=== PATIENT | male | born 1945 | race Hispanic/Latino ===

== ENCOUNTER 2023-04-08 09:04 | Inpatient (IN) | payer MEDICAID, SELFPAY ==
[2023-04-08 09:54] LABS: Hematocrit 33.1 % (42.0-52.0); Mean Corpuscular HGB CONC 33.2 g/dL (32.0-36.0); Mean Corpuscular Hemoglobin 28.7 pg (27.0-31.0); Mean Corpuscular Volume 86.4 fl (78.0-98.0); Mean Platelet Volume 11.7 fL (7.4-10.4); Platelet Count 121 10x3/uL (130-400); RBC Distribution Width 15.5 % (11.5-14.5); Red Blood Cell (RBC) Count 3.83 mill/uL (4.70-6.10); White Blood Cell (WBC) Count 4.3 10x3/uL (4.8-10.8)
[2023-04-08 10:17] LABS: ALT (SGPT) 199 U/L (8-55); AST (SGOT) 596 U/L (5-34); Albumin 2.1 g/dL (3.4-4.8); Alkaline Phosphatase 245 U/L (40-110); Anion Gap 15 mmol/L (10-20); BUN (Urea Nitrogen) 35 mg/dL (8.4-25.7); Calc. Creatinine Clearance 0 mL/min (70-130); Calcium 7.1 mg/dL (7.8-10.44); Carbon Dioxide 22 mmol/L (23-31); Chloride 97 mmol/L (98-107); Estimated GFR 49; Globulin 5.1 g/dL (2.4-3.5); Glucose 82 mg/dL (83-110); Potassium 4.2 mmol/L (3.5-5.1); Protein, Total 7.2 g/dL (5.8-8.1); Sodium 130 mmol/L (136-145)
[2023-04-08 10:19] LABS: Troponin I 0.027 ng/mL (< 0.028)
[2023-04-08 10:20] LABS: Delete Auto Diff?? YES; Manual Diff?? YES
[2023-04-08 10:49] LABS: Anisocytosis MODERATE=16-30 cells HPF (0-5); Band 30 % (5-11); Burr Cells SLIGHT = 2-5 cells HPF (0-1); CellaVision Operator ID LAB.NR; Lymphocytes 3 % (21-51); Macrocytosis SLIGHT = 6-15 cells HPF (0-5); Monocytes 3 % (0-10); Neutrophil 64 % (42-75); Nucleated RBC (Manual Ct) 1 % (0); Platelet Adequacy Comment Platelets Decreased; Poikilocytosis SLIGHT = 6-15 cells HPF (0-5); Polychromasia SLIGHT = 2-3 cells HPF (0-2); Smudge Cells 27.5 %; Total Cell Count 102
[2023-04-08] MEDS ORDERED: Iopamidol-370 76% 500 ML MDV (1 ML CHARGE) ONE (11:31)
[2023-04-08] MEDS ORDERED: cefTRIAXone (ROCEPHIN) 2 GM VIAL ONE (12:08)
[2023-04-08] MEDS ORDERED: Sodium Chloride 0.9% 100 ML ONE (12:09)
[2023-04-08 12:35] LABS: Bacteria/HPF None Seen HPF (None Seen); Bilirubin Negative (Negative); Blood, Urine 2+ (Negative); CAUTI Indications for Culture Pelvic or flank pain; Clarity Turbid (Clear); Glucose, Urine (Dipstick) Normal (Negative); Ketone, Urine Negative (Negative); Leukocyte Negative Leu/uL (Negative); Nitrite Negative (Negative); Protein, Urine (Dipstick) 30 mg/dL (Neg-Trace); Specific Gravity, Urine 1.016 (1.002-1.036); Squamous Epithelial 0-3 HPF (0-3); Urobilinogen Normal mg/dL (Less than 2); WBC/HPF 0-3 HPF (0-3); pH, Urine 5.5 (5.0-9.0)
[2023-04-08 12:36] LABS: Urine Culture Reflex No No
[2023-04-08] MEDS ORDERED: Ondansetron PF 4 MG/2 ML Vial IVP PRN (13:30)
[2023-04-08] MEDS ORDERED: Ondansetron ODT 4 MG TAB PO PRN (13:30)
[2023-04-08] MEDS ORDERED: Acetaminophen 325 MG TAB PO PRN (13:30)
[2023-04-08 14:02] LABS: Bilirubin, Direct 5.8 mg/dL (0.1-0.3); Bilirubin, Total 7.7 mg/dL (0.2-1.2)
[2023-04-08] MEDS ORDERED: Sodium Chloride 0.9% 1,000 ML IV SCH (14:15)
[2023-04-08 14:37] LABS: HBCM Index 0.25 S/CO (0-0.79); HBSAg Index 0.24 S/CO (0-0.99); Hep A IgM AB Non-Reactive S/CO (NonReactive); Hep A IgM S/CO 0.33 S/CO (0-0.79); Hep B Surf Ag Non-Reactive S/CO (NonReactive); Hep C IgG Ab Non-Reactive S/CO (NonReactive); Hep C Index 0.67 S/CO (0-0.79); Hepatitis B Core IgM Abs Non-Reactive S/CO (NonReactive)
[2023-04-08 15:08] VITALS: BMI 19.0
[2023-04-08 17:25] LABS: Amphetamine Not Detected (NotDetected); Barbiturates Screen Not Detected (NotDetected); Benzodiazepine Screen Not Detected (NotDetected); Cocaine Metabolite Screen Not Detected (NotDetected); Methadone Not Detected (NotDetected); Methamphetamine Not Detected (NotDetected); Opiate Screen Not Detected (NotDetected); Oxycodone Screen Not Detected (NotDetected); Phencyclidine (PCP) Not Detected (NotDetected); THC/Cannabinoid Screen Not Detected (NotDetected); Tricyclic Screen Not Detected (NotDetected)
[2023-04-08 18:23] LABS: Acetaminophen Less than 10 mcg/mL (10.0-30.0); Alcohol Less than 10.0 mg/dL (Less than 10)
[2023-04-09] MEDS: Acetaminophen 325 MG TAB PO PRN (00:09)
[2023-04-09] MEDS ORDERED: Acetaminophen 325 MG TAB PO SCH (00:15)
[2023-04-09 07:09] LABS: Hematocrit 31.6 % (42.0-52.0); Hemoglobin 10.2 g/dL (14.0-18.0); Mean Corpuscular HGB CONC 32.3 g/dL (32.0-36.0); Mean Corpuscular Hemoglobin 29.1 pg (27.0-31.0); Mean Platelet Volume 11.7 fL (7.4-10.4); Platelet Count 93 10x3/uL (130-400); RBC Distribution Width 16.1 % (11.5-14.5); White Blood Cell (WBC) Count 3.5 10x3/uL (4.8-10.8)
[2023-04-09 07:16] LABS: Delete Auto Diff?? YES; Manual Diff?? YES; Mean Corpuscular Volume 90.3 fl (78.0-98.0)
[2023-04-09 07:36] LABS: ALT (SGPT) 188 U/L (8-55); AST (SGOT) 560 U/L (5-34); Albumin 1.3 g/dL (3.4-4.8); Alkaline Phosphatase 177 U/L (40-110); Anion Gap 11 mmol/L (10-20); BUN (Urea Nitrogen) 28 mg/dL (8.4-25.7); Bilirubin, Total 7.7 mg/dL (0.2-1.2); Calc. Creatinine Clearance 38 mL/min (70-130); Carbon Dioxide 22 mmol/L (23-31); Chloride 99 mmol/L (98-107); Estimated GFR 68; Globulin 4.8 g/dL (2.4-3.5); Glucose 57 mg/dL (83-110); Potassium 4.3 mmol/L (3.5-5.1); Protein, Total 6.1 g/dL (5.8-8.1); Sodium 128 mmol/L (136-145)
[2023-04-09 07:53] LABS: Calcium 6.9 mg/dL (7.8-10.44)
[2023-04-09 08:38] LABS: Band 41 % (5-11); Burr Cells MODERATE= 6-15 cells HPF (0-1); CellaVision Operator ID LAB.GE; Large Platelets 5.9 % (0-5); Lymphocytes 3 % (21-51); Neutrophil 54 % (42-75); Platelet Adequacy Comment Platelets Decreased; Polychromasia SLIGHT = 2-3 cells HPF (0-2); Schistocytes SLIGHT = 2-5 cells HPF (0-1); Total Cell Count 102
[2023-04-09] MEDS ORDERED: Glucagon 1 MG/ML KIT IM PRN (09:35)
[2023-04-09] MEDS ORDERED: Dextrose 5% in Water 1,000 ML IV PRN (09:35)
[2023-04-09] MEDS ORDERED: Dextrose 50% Abboject 50 ML SYRINGE SLOW IVP PRN (09:35)
[2023-04-09] MEDS ORDERED: Dextrose 50% Abboject 50 ML SYRINGE SLOW IVP SCH (09:45)
[2023-04-09] MEDS ORDERED: Lactated Ringer's 1,000 ML IV SCH (13:45)
[2023-04-09] MEDS: cefTRIAXone\\ROCEPHIN 2 GM in Sodium Chloride 0.9% 100 ML IVPB SCH (14:44)
[2023-04-09] MEDS: Thiamine HCl 200 MG/2 ML VIAL SLOW IVP SCH (14:44)
[2023-04-09] MEDS: Lactated Ringer's 1,000 ML IV SCH (14:44)
[2023-04-10] MEDS: Lactated Ringer's 1,000 ML IV SCH (04:24)
[2023-04-10] MEDS: Acetaminophen 325 MG TAB PO PRN (04:29)
[2023-04-10 06:51] LABS: Hematocrit 28.3 % (42.0-52.0); Hemoglobin 9.2 g/dL (14.0-18.0); Mean Corpuscular HGB CONC 32.5 g/dL (32.0-36.0); Mean Platelet Volume 11.5 fL (7.4-10.4); Platelet Count 112 10x3/uL (130-400); RBC Distribution Width 15.8 % (11.5-14.5); Red Blood Cell (RBC) Count 3.28 mill/uL (4.70-6.10); White Blood Cell (WBC) Count 3.5 10x3/uL (4.8-10.8)
[2023-04-10 06:53] LABS: Mean Corpuscular Volume 86.3 fl (78.0-98.0)
[2023-04-10 07:00] LABS: Hematocrit 28.3 % (42.0-52.0); Hemoglobin 9.4 g/dL (14.0-18.0); Mean Corpuscular HGB CONC 33.2 g/dL (32.0-36.0); Mean Corpuscular Hemoglobin 28.8 pg (27.0-31.0); Mean Platelet Volume 11.8 fL (7.4-10.4); Platelet Count 112 10x3/uL (130-400); RBC Distribution Width 15.6 % (11.5-14.5); Red Blood Cell (RBC) Count 3.26 mill/uL (4.70-6.10); White Blood Cell (WBC) Count 3.5 10x3/uL (4.8-10.8)
[2023-04-10 07:03] LABS: Hemoglobin A1c 5.9 % (4.0-6.0)
[2023-04-10 07:12] LABS: Delete Auto Diff?? YES; Manual Diff?? YES; Mean Corpuscular Volume 86.8 fl (78.0-98.0)
[2023-04-10 07:18] LABS: ALT (SGPT) 202 U/L (8-55); AST (SGOT) 561 U/L (5-34); Albumin 1.3 g/dL (3.4-4.8); Alkaline Phosphatase 147 U/L (40-110); Anion Gap 10 mmol/L (10-20); BUN (Urea Nitrogen) 27 mg/dL (8.4-25.7); Bilirubin, Total 7.2 mg/dL (0.2-1.2); Calc. Creatinine Clearance 36 mL/min (70-130); Carbon Dioxide 23 mmol/L (23-31); Chloride 102 mmol/L (98-107); Estimated GFR 64; Globulin 4.6 g/dL (2.4-3.5); Glucose 119 mg/dL (83-110); Iron 31 ug/dL (65-175); Iron Binding Capacity, Total 78 mcg/dL (261-462); Lipase 49 U/L (8-78); Protein, Total 5.9 g/dL (5.8-8.1); Sodium 131 mmol/L (136-145)
[2023-04-10 08:13] LABS: Band 30 % (5-11); Burr Cells SLIGHT = 2-5 cells HPF (0-1); CellaVision Operator ID LAB.GE; Giant Platelets 2.9 % (0-5); Large Platelets 8.7 % (0-5); Lymphocytes 4 % (21-51); Metamyelocyte 1 % (0-0); Myelocyte 1 % (0-0); Neutrophil 60 % (42-75); Platelet Adequacy Comment Platelets Decreased; Polychromasia SLIGHT = 2-3 cells HPF (0-2); Reactive Lymphocytes 2 % (0-10); Total Cell Count 104
[2023-04-10] MEDS: Multivit, Therapeutic 1 TAB PO SCH (08:44)
[2023-04-10] MEDS: Folic Acid 1 MG TAB PO SCH (08:44)
[2023-04-10 12:16] LABS: ANA Symphony (Qualitative) Equivocal: See Note (Negative); ANA Symphony (Quantitative) 0.7 Ratio (< 0.7 Negative); dsDNA IgG Antibody 4.1 IU/mL (<10 Negative)
[2023-04-10 12:17] LABS: EliA Vaculitis New Method **** NEW METHOD ****
[2023-04-10] MEDS ORDERED: Magnevist 469MG/ML 20 ML VIAL ONE (13:39)
[2023-04-10] MEDS: cefTRIAXone\\ROCEPHIN 2 GM in Sodium Chloride 0.9% 100 ML IVPB SCH (14:26)
[2023-04-10] MEDS: Thiamine HCl 200 MG/2 ML VIAL SLOW IVP SCH (14:26)
[2023-04-11] MEDS: Acetaminophen 325 MG TAB PO PRN (00:37)
[2023-04-11 06:33] LABS: Hematocrit 31.2 % (42.0-52.0); Hemoglobin 9.7 g/dL (14.0-18.0); Mean Corpuscular HGB CONC 31.1 g/dL (32.0-36.0); Mean Corpuscular Hemoglobin 28.4 pg (27.0-31.0); Mean Platelet Volume 11.3 fL (7.4-10.4); Platelet Count 97 10x3/uL (130-400); Red Blood Cell (RBC) Count 3.41 mill/uL (4.70-6.10); White Blood Cell (WBC) Count 5.2 10x3/uL (4.8-10.8)
[2023-04-11 06:35] LABS: Delete Auto Diff?? YES; Manual Diff?? YES; Mean Corpuscular Volume 91.5 fl (78.0-98.0)
[2023-04-11 06:56] LABS: Immunoglob - G (Total IgG) 3419 mg/dL (540-1822); Immunoglob - M (Total IgM) 490 mg/dL (22-240)
[2023-04-11 06:59] LABS: ALT (SGPT) 204 U/L (8-55); AST (SGOT) 507 U/L (5-34); Albumin 1.4 g/dL (3.4-4.8); Alkaline Phosphatase 143 U/L (40-110); Anion Gap 12 mmol/L (10-20); BUN (Urea Nitrogen) 23 mg/dL (8.4-25.7); Bilirubin, Total 8.5 mg/dL (0.2-1.2); Calc. Creatinine Clearance 44 mL/min (70-130); Calcium 7.5 mg/dL (7.8-10.44); Carbon Dioxide 22 mmol/L (23-31); Chloride 102 mmol/L (98-107); Estimated GFR 81; Globulin 4.9 g/dL (2.4-3.5); Glucose 88 mg/dL (83-110); Potassium 3.7 mmol/L (3.5-5.1); Protein, Total 6.3 g/dL (5.8-8.1); Sodium 132 mmol/L (136-145)
[2023-04-11 07:02] LABS: Band 30 % (5-11); Burr Cells SLIGHT = 2-5 cells HPF (0-1); CellaVision Operator ID LAB.GE; Lymphocytes 1 % (21-51); Neutrophil 66 % (42-75); Platelet Adequacy Comment Platelets Decreased; Polychromasia SLIGHT = 2-3 cells HPF (0-2); Reactive Lymphocytes 1 % (0-10); Total Cell Count 101
[2023-04-11] MEDS: Multivit, Therapeutic 1 TAB PO SCH (08:29)
[2023-04-11] MEDS: Folic Acid 1 MG TAB PO SCH (08:29)
[2023-04-11] MEDS ORDERED: Polyethylene Glycol 3350 17 GM Packet PO PRN (12:22)
[2023-04-11] MEDS ORDERED: Docusate 100 MG CAP PO PRN (12:22)
[2023-04-11] MEDS ORDERED: Docusate 100 MG CAP PO SCH (12:30)
[2023-04-11] MEDS ORDERED: Polyethylene Glycol 3350 17 GM Packet PO SCH (12:30)
[2023-04-11] MEDS: cefTRIAXone\\ROCEPHIN 2 GM in Sodium Chloride 0.9% 100 ML IVPB SCH (13:12)
[2023-04-11] MEDS: Thiamine HCl 200 MG/2 ML VIAL SLOW IVP SCH (13:14)
[2023-04-11] MEDS ORDERED: FLU VACC QS2023(65UP)/MF59C/PF 60 MCG/0.5 ML SYRINGE IM ONE (16:00)
[2023-04-11 16:37] LABS: A/G Ratio 0.4 (0.7-1.7); Alpha 1 0.3 g/dL (0.0-0.4); Alpha 2 0.4 g/dL (0.4-1.0); Beta 0.6 g/dL (0.7-1.3); Gamma 3.8 g/dL (0.4-1.8); Globulin, Total 5.1 g/dL (2.2-3.9); M-Spike Not Observed g/dL (Not Observed); Protein Electrophoresis Intrp Note: (.)
[2023-04-11 16:37] LABS: Albumin-Ur 18.3 % (.); Alpha 1 - Ur 2.1 % (.); Alpha 2 - Ur 13.5 % (.); Beta-Ur 45.2 % (.); Gamma-Ur 20.9 % (.); M-Spike,% Not Observed % (Not Observed); Protein, Urine 53.4 mg/dL (Not Estab.)
[2023-04-12 06:13] LABS: EBV VCA IgM <36.0 U/mL (0.0-35.9)
[2023-04-12 07:21] LABS: Hematocrit 28.3 % (42.0-52.0); Hemoglobin 9.1 g/dL (14.0-18.0); Mean Corpuscular HGB CONC 32.2 g/dL (32.0-36.0); Mean Corpuscular Hemoglobin 28.3 pg (27.0-31.0); Mean Corpuscular Volume 87.9 fl (78.0-98.0); Mean Platelet Volume 11.9 fL (7.4-10.4); Platelet Count 110 10x3/uL (130-400); RBC Distribution Width 15.8 % (11.5-14.5); Red Blood Cell (RBC) Count 3.22 mill/uL (4.70-6.10); White Blood Cell (WBC) Count 5.5 10x3/uL (4.8-10.8)
[2023-04-12 07:38] LABS: ALT (SGPT) 171 U/L (8-55); AST (SGOT) 311 U/L (5-34); Albumin 1.4 g/dL (3.4-4.8); Alkaline Phosphatase 133 U/L (40-110); Anion Gap 9 mmol/L (10-20); BUN (Urea Nitrogen) 20 mg/dL (8.4-25.7); Bilirubin, Total 8.4 mg/dL (0.2-1.2); Calc. Creatinine Clearance 55 mL/min (70-130); Calcium 7.4 mg/dL (7.8-10.44); Carbon Dioxide 25 mmol/L (23-31); Chloride 102 mmol/L (98-107); Delete Auto Diff?? YES; Estimated GFR 92; Globulin 4.8 g/dL (2.4-3.5); Glucose 89 mg/dL (83-110); Manual Diff?? YES; Potassium 3.9 mmol/L (3.5-5.1); Protein, Total 6.2 g/dL (5.8-8.1); Sodium 132 mmol/L (136-145)
[2023-04-12 07:39] LABS: ALT (SGPT) 169 U/L (8-55); AST (SGOT) 309 U/L (5-34); Albumin 1.3 g/dL (3.4-4.8); Alkaline Phosphatase 133 U/L (40-110); Bilirubin, Direct 6.3 mg/dL (0.1-0.3); Bilirubin, Total 8.3 mg/dL (0.2-1.2)
[2023-04-12 08:09] LABS: INR-International Normal Ratio 1.9; Prothrombin Time 22.2 sec (12.0-14.7)
[2023-04-12 08:15] LABS: Band 16 % (5-11); Eosinophils 4 % (0-10); Monocytes 2 % (0-10); Neutrophil 75 % (42-75); Nucleated RBC (Manual Ct) 1 % (0); Platelet Adequacy Comment Platelets Decreased; Polychromasia SLIGHT = 2-3 cells HPF (0-2); Reactive Lymphocytes 2 % (0-10); Total Cell Count 100
[2023-04-12] MEDS: Thiamine 100 MG TAB PO SCH (08:56)
[2023-04-12] MEDS: Multivit, Therapeutic 1 TAB PO SCH (08:56)
[2023-04-12] MEDS: Folic Acid 1 MG TAB PO SCH (08:57)
[2023-04-12] MEDS: cefTRIAXone\\ROCEPHIN 2 GM in Sodium Chloride 0.9% 100 ML IVPB SCH (14:36)
[2023-04-13 06:32] LABS: ALT (SGPT) 176 U/L (8-55); AST (SGOT) 258 U/L (5-34); Albumin 1.3 g/dL (3.4-4.8); Alkaline Phosphatase 194 U/L (40-110); Anion Gap 10 mmol/L (10-20); BUN (Urea Nitrogen) 20 mg/dL (8.4-25.7); Bilirubin, Total 10.4 mg/dL (0.2-1.2); Calc. Creatinine Clearance 55 mL/min (70-130); Calcium 7.3 mg/dL (7.8-10.44); Carbon Dioxide 24 mmol/L (23-31); Chloride 100 mmol/L (98-107); Estimated GFR 92; Globulin 5.2 g/dL (2.4-3.5); Glucose 91 mg/dL (83-110); Potassium 4.4 mmol/L (3.5-5.1); Protein, Total 6.5 g/dL (5.8-8.1); Sodium 130 mmol/L (136-145)
[2023-04-13] MEDS: Thiamine 100 MG TAB PO SCH (08:47)
[2023-04-13] MEDS: Folic Acid 1 MG TAB PO SCH (08:47)
[2023-04-13] MEDS: Multivit, Therapeutic 1 TAB PO SCH (08:47)
[2023-04-13 09:14] LABS: Creatinine - Urine 0.72 g/L (0.30-3.00); Lead - Urine None Detected ug/L (0-49); Mercury - Urine None Detected ug/L (0-19)
[2023-04-13 11:34] LABS: INR-International Normal Ratio 1.8
[2023-04-13 14:38] LABS: CMV DNA-PCR Test Negative (Negative)
[2023-04-13] MEDS: cefTRIAXone\\ROCEPHIN 2 GM in Sodium Chloride 0.9% 100 ML IVPB SCH (14:38)
[2023-04-13] MEDS: methylPREDNISolone Sod Succ 40 MG VIAL IVP SCH (19:47)
[2023-04-13] MEDS: Acetaminophen 325 MG TAB PO PRN (20:02)
[2023-04-14 05:53] LABS: Hematocrit 26.4 % (42.0-52.0); Hemoglobin 8.7 g/dL (14.0-18.0); Mean Corpuscular Hemoglobin 28.9 pg (27.0-31.0); Mean Corpuscular Volume 87.7 fl (78.0-98.0); Mean Platelet Volume 11.9 fL (7.4-10.4); Platelet Count 126 10x3/uL (130-400); RBC Distribution Width 15.9 % (11.5-14.5); Red Blood Cell (RBC) Count 3.01 mill/uL (4.70-6.10); White Blood Cell (WBC) Count 5.1 10x3/uL (4.8-10.8)
[2023-04-14 06:12] LABS: ALT (SGPT) 191 U/L (8-55); AST (SGOT) 203 U/L (5-34); Albumin 1.4 g/dL (3.4-4.8); Alkaline Phosphatase 250 U/L (40-110); Anion Gap 11 mmol/L (10-20); BUN (Urea Nitrogen) 21 mg/dL (8.4-25.7); Bilirubin, Total 12.4 mg/dL (0.2-1.2); Calc. Creatinine Clearance 53 mL/min (70-130); Calcium 7.2 mg/dL (7.8-10.44); Carbon Dioxide 24 mmol/L (23-31); Chloride 101 mmol/L (98-107); Estimated GFR 91; Glucose 144 mg/dL (83-110); Potassium 4.6 mmol/L (3.5-5.1); Protein, Total 6.4 g/dL (5.8-8.1); Sodium 131 mmol/L (136-145)
[2023-04-14 08:28] LABS: INR-International Normal Ratio 1.8; Prothrombin Time 21.4 sec (12.0-14.7)
[2023-04-14] MEDS: Thiamine 100 MG TAB PO SCH (09:09)
[2023-04-14] MEDS: Folic Acid 1 MG TAB PO SCH (09:09)
[2023-04-14] MEDS: Multivit, Therapeutic 1 TAB PO SCH (09:10)
[2023-04-14] MEDS: methylPREDNISolone Sod Succ 40 MG VIAL IVP SCH ×2 (09:10→20:54)
[2023-04-14 11:12] LABS: Hepatitis E Virus IgG ABS Positive (Negative)
[2023-04-14 15:12] LABS: QuantiFERON-TB Gold Plus Indeterminate (Negative)
[2023-04-15 06:42] LABS: #Monocytes 0.4 thou/uL (0.11-0.59); #Neutrophils 5.7 thou/uL (1.40-6.50); %Basophils 0.3 % (0.0-1.0); %Eosinophils 0.1 % (0.0-10.0); %Lymphocytes 12.7 % (21.0-51.0); %Neutrophils 80.5 % (42.0-75.0); Hematocrit 25.5 % (42.0-52.0); Hemoglobin 8.4 g/dL (14.0-18.0); Mean Corpuscular HGB CONC 32.9 g/dL (32.0-36.0); Mean Corpuscular Hemoglobin 28.3 pg (27.0-31.0); Mean Corpuscular Volume 85.9 fl (78.0-98.0); Mean Platelet Volume 11.4 fL (7.4-10.4); Platelet Count 136 10x3/uL (130-400); RBC Distribution Width 15.9 % (11.5-14.5); Red Blood Cell (RBC) Count 2.97 mill/uL (4.70-6.10)
[2023-04-15 06:52] LABS: INR-International Normal Ratio 1.7; Prothrombin Time 20.3 sec (12.0-14.7)
[2023-04-15 07:10] LABS: ALT (SGPT) 219 U/L (8-55); AST (SGOT) 206 U/L (5-34); Albumin 1.4 g/dL (3.4-4.8); Alkaline Phosphatase 338 U/L (40-110); Anion Gap 10 mmol/L (10-20); BUN (Urea Nitrogen) 22 mg/dL (8.4-25.7); Bilirubin, Total 13.1 mg/dL (0.2-1.2); Calc. Creatinine Clearance 58 mL/min (70-130); Calcium 7.1 mg/dL (7.8-10.44); Carbon Dioxide 24 mmol/L (23-31); Chloride 100 mmol/L (98-107); Estimated GFR 94; Globulin 4.8 g/dL (2.4-3.5); Glucose 112 mg/dL (83-110); Potassium 4.6 mmol/L (3.5-5.1); Protein, Total 6.2 g/dL (5.8-8.1); Sodium 129 mmol/L (136-145)
[2023-04-15] MEDS: Folic Acid 1 MG TAB PO SCH (09:15)
[2023-04-15] MEDS: methylPREDNISolone Sod Succ 40 MG VIAL IVP SCH ×2 (09:15→20:21)
[2023-04-15] MEDS: Thiamine 100 MG TAB PO SCH (09:15)
[2023-04-15] MEDS: Multivit, Therapeutic 1 TAB PO SCH (09:15)
[2023-04-15] MEDS: Ursodiol 300 MG CAP PO SCH ×2 (09:15→17:07)
[2023-04-15] MEDS ORDERED: Ibuprofen 600 MG TAB PO PRN (09:55)
[2023-04-16 06:58] LABS: #Monocytes 0.5 thou/uL (0.11-0.59); #Neutrophils 4.7 thou/uL (1.40-6.50); %Basophils 0.2 % (0.0-1.0); %Eosinophils 0.3 % (0.0-10.0); %Lymphocytes 12.7 % (21.0-51.0); %Monocytes 8.6 % (0.0-10.0); %Neutrophils 77.5 % (42.0-75.0); Hemoglobin 7.9 g/dL (14.0-18.0); Mean Corpuscular HGB CONC 32.9 g/dL (32.0-36.0); Mean Corpuscular Hemoglobin 28.4 pg (27.0-31.0); Mean Corpuscular Volume 86.3 fl (78.0-98.0); Mean Platelet Volume 10.9 fL (7.4-10.4); Platelet Count 172 10x3/uL (130-400); RBC Distribution Width 15.9 % (11.5-14.5); Red Blood Cell (RBC) Count 2.78 mill/uL (4.70-6.10)
[2023-04-16 07:15] LABS: ALT (SGPT) 262 U/L (8-55); AST (SGOT) 183 U/L (5-34); Albumin 1.5 g/dL (3.4-4.8); Alkaline Phosphatase 313 U/L (40-110); Anion Gap 11 mmol/L (10-20); BUN (Urea Nitrogen) 24 mg/dL (8.4-25.7); Bilirubin, Total 12.9 mg/dL (0.2-1.2); Calc. Creatinine Clearance 58 mL/min (70-130); Calcium 7.3 mg/dL (7.8-10.44); Carbon Dioxide 24 mmol/L (23-31); Chloride 98 mmol/L (98-107); Estimated GFR 93; Globulin 4.7 g/dL (2.4-3.5); Glucose 103 mg/dL (83-110); Potassium 4.8 mmol/L (3.5-5.1); Protein, Total 6.2 g/dL (5.8-8.1); Sodium 128 mmol/L (136-145)
[2023-04-16 07:20] LABS: INR-International Normal Ratio 1.5; Prothrombin Time 18.8 sec (12.0-14.7)
[2023-04-16 08:14] VITALS: BP 124/64; TEMP 97.7
[2023-04-16 09:41] LABS: Brucella IgM Ab Positive (Negative)
[2023-04-16] MEDS: Folic Acid 1 MG TAB PO SCH (10:07)
[2023-04-16] MEDS: Ursodiol 300 MG CAP PO SCH (10:07)
[2023-04-16] MEDS: Multivit, Therapeutic 1 TAB PO SCH (10:07)
[2023-04-16] MEDS: Thiamine 100 MG TAB PO SCH (10:07)
[2023-04-16] MEDS: methylPREDNISolone Sod Succ 40 MG VIAL IVP SCH (10:07)
[2023-04-18 08:38] LABS: QuantiFERON-TB Gold Plus Indeterminate (Negative)
== END 2023-04-16 17:03 | disposition short-term general hospital (02) | DRG 441 ==
LOC: ERS 09:04 → T4-A 13:30 → OBSVTOIN 04-09 09:13
PROVIDERS: ADMIT Internal Medicine; ATTEND Family Medicine
DX: K75.4 Autoimmune hepatitis (principal); E43 Unspecified severe protein-calorie malnutrition; J18.9 Pneumonia, unspecified organism; D61.818 Other pancytopenia; N13.0 Hydronephrosis with ureteropelvic junction obstruction; E87.1 Hypo-osmolality and hyponatremia; N17.9 Acute kidney failure, unspecified; I50.32 Chronic diastolic (congestive) heart failure; Z68.1 Body mass index [BMI] 19.9 or less, adult; D73.89 Other diseases of spleen; E16.2 Hypoglycemia, unspecified; E83.51 Hypocalcemia; K76.0 Fatty (change of) liver, not elsewhere classified; D50.9 Iron deficiency anemia, unspecified; I25.10 Atherosclerotic heart disease of native coronary artery without angina pectoris; N40.1 Benign prostatic hyperplasia with lower urinary tract symptoms; R33.8 Other retention of urine; J84.10 Pulmonary fibrosis, unspecified; Z99.81 Dependence on supplemental oxygen; Z95.1 Presence of aortocoronary bypass graft; Z79.899 Other long term (current) drug therapy; Z79.82 Long term (current) use of aspirin
CPT/HCPCS: 36415; 36416; 51702; 71045; 71275; 74177; 74183; 76705; 80053; 80074; 80143; 80306; 80307; 81001; 82103; 82105; 82175; 82247; 82390; 82570; 82728; 83036; 83516; 83540; 83550; 83605; 83655; 83690; 83825; 83880; 84155; 84156; 84165; 84166; 84484; 85025; 85027; 85610; 86015; 86038; 86225; 86301; 86480; 86622; 86664; 86665; 86790; 87040; 87497; 87798; 88184; 93005; 93306; 93970; 96365; 97139; A9579; G0378; J0696; J2405; J2920; J3411; J3490; J7050; J7120; J7999; Q9967